=== PATIENT | female | born 2000 | race African-American/Black ===

== ENCOUNTER 2022-09-11 09:58 | Inpatient (IN) ==
[2022-09-11 12:20] LABS: Mucus,Urine Many /LPF (Occasional); Squamous Epithelial Cell,Urine Occasional /HPF (0-10); Urine Appearance Clear (Clear); Urine Color Yellow (Yellow); Urine Specific Gravity >= 1.030 (1.001-1.035); Urine pH 6.5 (4.5-8.0)
[2022-09-11 12:21] LABS: Bilirubin,Urine Negative (Negative); Blood, Urine Negative (Negative); Glucose,Urine (UA) Negative (Negative); Ketones,Urine Trace mg/dL (Negative); Nitrite,Urine Negative (Negative); Protein,Urine 30 mg/dL (Negative)
[2022-09-12] MEDS ORDERED: BUTORPHANOL 2 MG/ML VIAL IV PRN (08:00)
[2022-09-12] MEDS ORDERED: miSOPROStoL 200 MCG TABLET RECTAL PRN (08:00)
[2022-09-12] MEDS ORDERED: TRANEXAMIC ACID 1,000 MG in SODIUM CHLORIDE 0.9% 100 ML IV PRN (08:00)
[2022-09-12] MEDS ORDERED: ONDANSETRON 4 MG/2 ML VIAL IV PRN (08:00)
[2022-09-12] MEDS ORDERED: MEPERIDINE 50 MG/1 ML VIAL IV PRN (08:00)
[2022-09-12] MEDS ORDERED: OXYTOCIN/LR 20 UNIT/1,000 ML BAG IV ONE (08:00)
[2022-09-12] MEDS ORDERED: METHYLERGONOVINE 0.2 MG/1 ML AMP IM PRN (08:00)
[2022-09-12] MEDS ORDERED: CARBOPROST TROMETHAMINE 250 MCG/ML AMP IM PRN (08:00)
[2022-09-12 08:38] LABS: Basophils % 0.2 % (0.0-0.8); Eosinophils # 0.1 10*3/uL (0.0-0.87); Eosinophils % 0.6 % (0.00-10.9); Hematocrit 30.9 VOL% (35.7-47.0); Hemoglobin 9.1 GM/DL (12.0-16.0); Immature Granulocytes % 0.6 %; Immature Granulocytes Absolute 0.06 #; Lymphocytes % 20.9 % (21.3-54.2); Mean Corpuscular HGB Conc 29.4 GM/DL (32-36); Mean Platelet Volume 11.3 FL (9.6-12.0); Monocytes % 9.8 % (1.7-12.7); NRBC # 0.02 10*3/uL; Neutrophils % 67.9 % (38.7-73.9); Platelet Count 219 T/CUMM (130-400); Red Blood Count 4.12 MC/CUMM (3.8-5.5); Red Cell Distribution Width 16.7 % (9.3-17.3); White Blood Count 9.7 T/CUMM (4-12)
[2022-09-12 08:55] LABS: Albumin 2.9 G/DL (3.4-5.0); Bilirubin,Total 0.4 MG/DL (0.20-1.00); Osmolality,Calculated 269.8 MOS/KG (273-304); Potassium 3.7 MMOL/L (3.5-5.1); Total Protein 7.1 G/DL (6.4-8.2)
[2022-09-12] MEDS: LACTATED RINGERS 1,000 ML IV SCH ×2 (18:06→19:35)
[2022-09-13] MEDS ORDERED: OXYTOCIN/LR 20 UNIT/1,000 ML BAG IV SCH
[2022-09-13] MEDS: LACTATED RINGERS 1,000 ML IV SCH ×2 (02:00→07:11)
[2022-09-13] MEDS ORDERED: diphenhydrAMINE 50 MG/1 ML VIAL IV PRN ×2 (05:04)
[2022-09-13] MEDS ORDERED: CITRIC ACID/SODIUM CITRATE 30 ML UDCUP PO ONE (05:04)
[2022-09-13] MEDS ORDERED: NALOXONE 0.4 MG/ML VIAL IV PRN (05:04)
[2022-09-13] MEDS ORDERED: hydrOXYzine HCL 25 MG/1 ML VIAL IM PRN (05:04)
[2022-09-13] MEDS ORDERED: ONDANSETRON 4 MG/2 ML VIAL IV ONE (05:04)
[2022-09-13] MEDS ORDERED: ePHEDrine 50 MG/ML VIAL IV PRN ×2 (05:04)
[2022-09-13] MEDS ORDERED: FAMOTIDINE 20 MG/2 ML VIAL IV ONE (05:04)
[2022-09-13] MEDS ORDERED: PROMETHAZINE 25 MG/1 ML VIAL IM ONE (05:04)
[2022-09-13] MEDS: fentaNYL 2 MCG/ROPIV 0.2% EPID 100 ML EPIDURAL SCH ×2 (06:16→14:29)
[2022-09-13 09:45] LABS: Bacteria,Urine Occasional /HPF (Few); Mucus,Urine Moderate /LPF (Occasional)
[2022-09-13 09:46] LABS: Bilirubin,Urine Negative (Negative); Blood, Urine Trace mg/dL (Negative); Glucose,Urine (UA) Negative (Negative); Ketones,Urine 80 mg/dL (Negative); Nitrite,Urine Negative (Negative); Protein,Urine Negative (Negative); Urine Appearance Clear (Clear); Urine Color Yellow (Yellow); Urine Urobilinogen 0.2 eU/dL (<2.0)
[2022-09-13] MEDS ORDERED: SODIUM CHLORIDE 0.9% 0 ML IV ONE ×2 (13:46→14:28)
[2022-09-13] MEDS ORDERED: TRANEXAMIC ACID 1,000 MG/10 ML VIAL ONE ×2 (13:46→14:28)
[2022-09-13] MEDS ORDERED: miSOPROStoL 200 MCG TABLET ONE ×2 (13:46→14:28)
[2022-09-13] MEDS ORDERED: CARBOPROST TROMETHAMINE 250 MCG/ML AMP IM ONE ×2 (13:46→14:28)
[2022-09-13] MEDS ORDERED: METHYLERGONOVINE 0.2 MG/1 ML AMP ONE ×2 (13:46→14:28)
[2022-09-13 17:21] LABS: Cord Venous Blood HCO3 15.9 MMOL/L; Cord Venous Blood PCO2 47.8 MMHG; Cord Venous Blood PO2 < 17
[2022-09-13] MEDS ORDERED: ACETAMINOPHEN 325 MG TABLET PO PRN (20:12)
[2022-09-13] MEDS ORDERED: WITCH HAZEL PADS 100/JAR TOP PRN (20:12)
[2022-09-13] MEDS ORDERED: DIPH/TET/ACEL PERT BOOSTER VACCINE 0.5 ML VIAL IM ONE (20:12)
[2022-09-13] MEDS ORDERED: LANOLIN 50% CREAM 0.3 OZ TUBE TOP PRN (20:12)
[2022-09-13] MEDS ORDERED: MEASLES/MUMPS/RUBELLA VACCINE 0.5 ML VIAL SUBCUT ONE (20:12)
[2022-09-13] MEDS ORDERED: oxyCODONE/ACETAMINOPHEN 5-325 MG TABLET PO PRN (20:12)
[2022-09-13] MEDS ORDERED: OXYTOCIN/LR 20 UNIT/1,000 ML BAG IV ONE (20:12)
[2022-09-13] MEDS ORDERED: BISACODYL 10 MG SUPP RECTAL PRN (20:12)
[2022-09-13] MEDS ORDERED: BENZOCAINE 20%/MENTHOL 0.5% SPRAY 56 GM CAN TOP PRN (20:12)
[2022-09-13] MEDS ORDERED: RHO(D) IMMUNE GLOBULIN 300 MCG SYRINGE IM ONE (20:12)
[2022-09-13] MEDS ORDERED: HYDROCORTISONE 2.5% RECTAL CREAM 30 GM TUBE TOP PRN (20:12)
[2022-09-13] MEDS: oxyCODONE/ACETAMINOPHEN 5-325 MG TABLET PO PRN (20:48)
[2022-09-14] MEDS: IBUPROFEN 800 MG TABLET PO PRN ×2 (02:10→21:35)
[2022-09-14 04:32] LABS: Basophils % 0.2 % (0.0-0.8); Eosinophils % 0.2 % (0.00-10.9); Hematocrit 22.7 VOL% (35.7-47.0); Immature Granulocytes % 0.8 %; Immature Granulocytes Absolute 0.14 #; Lymphocytes # 2.1 10*3/uL (1.4-4.0); Lymphocytes % 11.4 % (21.3-54.2); Mean Corpuscular HGB Conc 30.8 GM/DL (32-36); Mean Corpuscular Volume 73.2 FL (87-102); Mean Platelet Volume 11.4 FL (9.6-12.0); Monocytes # 1.9 10*3/uL (0.11-0.8); Monocytes % 10.6 % (1.7-12.7); Neutrophils % 76.8 % (38.7-73.9); Platelet Count 185 T/CUMM (130-400); Red Cell Distribution Width 16.8 % (9.3-17.3); White Blood Count 18.3 T/CUMM (4-12)
[2022-09-14] MEDS ORDERED: SODIUM CHLORIDE 0.9% 1,000 ML IV PRN ×2 (06:36→06:40)
[2022-09-14] MEDS: DOCUSATE SODIUM 100 MG CAPSULE PO SCH ×2 (11:03→21:35)
[2022-09-14] MEDS: FERROUS SULFATE 325 MG TABLET PO SCH ×2 (11:03→21:35)
[2022-09-14] MEDS: oxyCODONE/ACETAMINOPHEN 5-325 MG TABLET PO PRN (13:24)
[2022-09-14 21:28] LABS: Hematocrit 28.3 VOL% (35.7-47.0)
[2022-09-14 21:32] LABS: Hemoglobin 9.1 GM/DL (12.0-16.0)
[2022-09-15 08:06] VITALS: BP 117/74
[2022-09-15] MEDS: DOCUSATE SODIUM 100 MG CAPSULE PO SCH (08:43)
[2022-09-15] MEDS: FERROUS SULFATE 325 MG TABLET PO SCH (08:43)
[2022-09-15] MEDS ORDERED: MULTIVITAMIN (PRENATAL) TABLET PO SCH (09:00)
== END 2022-09-15 12:35 | disposition home or self-care (01) | DRG 807 ==
LOC: N.LDOUT 09:58 → N.LD 10:00 → N.OB 09-13 23:00
PROVIDERS: ADMIT Obstetrics & Gynecology; ATTEND Obstetrics & Gynecology